=== PATIENT | male | born 1975 | race Caucasian/White ===

== ENCOUNTER 2021-11-02 22:57 | Emergency (ER) | payer BC ==
[~2021-11-02] VITALS: Ht 185.4 cm; Wt 116.2 kg
[2021-11-02 23:02] VITALS: BP 120/73
[2021-11-02] MEDS ORDERED: ONDANSETRON HCL 4MG/2ML INJ IV STA (23:11)
[2021-11-02] MEDS ORDERED: KETOROLAC 30MG/ML VIAL IV STA (23:11)
[2021-11-02] MEDS ORDERED: FAMOTIDINE 20MG/2ML VIAL IV ONE (23:15)
[2021-11-02] MEDS ORDERED: SODIUM CHLORIDE 0.9% 1,000 ML IV ONE (23:15)
[2021-11-02] MEDS ORDERED: ATORVASTATIN (23:15)
[2021-11-02] MEDS ORDERED: METFORMIN (23:16)
[2021-11-02] MEDS ORDERED: LISINOPRIL (23:16)
[2021-11-02 23:39] LABS: CLARITY URINE CLEAR (CLEAR); COLOR URINE YELLOW (YELLOW); KETONES URINE TRACE (NEGATIVE); LEUKOCYTE ESTERASE URINE NEGATIVE (NEGATIVE); NITRITE URINE NEGATIVE (NEGATIVE); OCCULT BLOOD URINE NEGATIVE (NEGATIVE); PROTEIN URINE NEGATIVE (NEGATIVE); SPECIFIC GRAVITY URINE 1.035 (1.005-1.030); UROBILINOGEN URINE 0.2 E.U./dL (0.2-1.0)
[2021-11-02 23:50] LABS: BASOPHILS % 0.5 % (0.0-2.0); EOSINOPHILS % 0.2 % (0.0-5.0); HEMATOCRIT. 45.2 % (42.0-52.0); HEMOGLOBIN. 15.6 g/dL (14.0-18.0); LYMPHOCYTES % 17.5 % (20.0-50.0); MEAN CORPUSCULAR HEMOGLOBIN 30.4 pg (28.0-32.0); MEAN CORPUSCULAR VOLUME 88.3 fL (80.0-94.0); NEUTROPHILS % 75.8 % (40.0-76.0); PLATELET 214 x1000/uL (130-400); RED BLOOD CELL COUNT 5.13 mill/uL (4.7-6.1)
[2021-11-02 23:53] LABS: CHLORIDE 105 mEq/L (98-107)
== END 2021-11-03 02:17 | disposition left against medical advice (07) ==
LOC: ER 23:20
DX: Z53.21 Procedure and treatment not carried out due to patient leaving prior to being seen by health care provider (principal)
CPT/HCPCS: 36415; 80053; 81003; 83690; 85025; J7030; 99283